=== PATIENT | male | born 1980 | race Caucasian/White ===

== ENCOUNTER 2019-06-26 15:20 | Emergency (ER) | payer OTHER ==
[~2019-06-26] VITALS: Ht 193 cm; Wt 97.0 kg
[2019-06-26] MEDS ORDERED: KETOROLAC 60 MG/2 ML VIAL IM ONE (16:00)
[2019-06-26] MEDS ORDERED: ORPHENADRINE 60 MG/2 ML (NORFLEX) AMP IM ONE (16:00)
[2019-06-26] MEDS ORDERED: CYCL10TA9 PO (16:04)
[2019-06-26] MEDS ORDERED: DICL50TA6 PO (16:04)
--- NOTE | 2019-06-26 16:04 | ED Back Pain ---
General Chief Complaint: Back Problems Stated Complaint: WC BACK PAIN Nursing Triage Note: PT WORKS AT [employer] AND WAS MOVING BUCKETS OF FRIES AND WATER WHILE SITTING DOWN AND NOW HIS LEFT SIDE LOWER BACK HURTS. Nursing Sepsis Screen: No Definite Risk Source of Information: Patient Exam Limitations: No Limitations History of Present Illness Date Seen by Provider: Jun 26, 2019 Time Seen by Provider: 16:00 Initial Comments Patient complains lower back pain radiating into buttocks for the past several hours. Onset was at work after he was moving 50 pound buckets. He denies fevers or incontinence. There is no direct trauma. It is worse with standing. He took Malaika without relief Allergies and Home Medications Allergies Coded Allergies: No Known Drug Allergies (Unverified , 06/26/19) Patient Home Medication List Home Medication List Reviewed: Yes Review of Systems Constitutional: no symptoms reported Respiratory: no symptoms reported Cardiovascular: no symptoms reported Genitourinary: no symptoms reported Musculoskeletal: back pain Past Cdabaom-Bvnizx-Uoeamx Hx Patient Social History Alcohol Use: Denies Use Recreational Drug Use: No 2nd Hand Smoke Exposure: No Recent Foreign Travel: No Contact w/Someone Who Travel: No Recent Infectious Disease Expo: No Recent Hopitalizations: No Physical Abuse: No Sexual Abuse: No Mistreated: No Fear: No Seasonal Allergies Seasonal Allergies: No Past Medical History Surgeries: No Respiratory: No Cardiac: No Neurological: No Genitourinary: No Gastrointestinal: No Musculoskeletal: No Endocrine: No HEENT: No Cancer: No Psychosocial: No Integumentary: No Blood Disorders: No Physical Exam Vital Signs Vital Signs - First Documented 06/26/19 15:40 Temp 37.0 Pulse 81 Resp 18 B/P (MAP) 111/80 (90) O2 Delivery Room Air Capillary Refill : Less Than 3 Seconds Height, Weight, BMI Height: '" Weight: lbs. oz. kg; 26.00 BMI Method: General Appearance: No Apparent Distress, WD/WN Neck: Supple Cardiovascular: Regular Rate, Rhythm Respiratory: Lungs Clear Gastrointestinal: Soft Back: Decreased Range of Motion, Muscle Spasm Extremity: Normal Inspection Neurologic/Psychiatric: Alert, No Motor/Sensory Deficits, Other (dorsiflexion 5 out of 5 bilaterally. Sensation grossly intact) Skin: Normal Color, Warm/Dry Progress/Results/Core Measures Results/Orders My Orders Orders - SAYDA BEYER MD Ketorolac Injection (Toradol Injection) (06/26/19 16:00) Orphenadrine Injection (Norflex Injectio (06/26/19 16:00) Vital Signs/I&O 06/26/19 15:40 Temp 37.0 Pulse 81 Resp 18 B/P (MAP) 111/80 (90) O2 Delivery Room Air Blood Pressure Mean: 90 POS Departure Impression Primary Impression: Back strain Additional Impression: Lumbar sprain Disposition: HOME, SELF-CARE Condition: Stable Departure-Patient Inst. Decision time for Depature: 16:02 Referrals: NO,LOCAL PHYSICIAN (PCP/Family) Primary Care Physician Patient Instructions: Lumbar Muscle Strain (DC) Add. Discharge Instructions: She decides to affected area. Take medications as prescribed. Return to work on Monday. All discharge instructions reviewed with patient and/or family. Voiced understanding. Scripts Cyclobenzaprine HCl (Cyclobenzaprine HCl) 10 Mg Tablet 10 MG PO TID PRN for SPASMS, #20 TAB Prov: SAYDA BEYER MD 06/26/19 Diclofenac Sodium (Diclofenac Sodium) 50 Mg Tablet. 50 MG PO BID, #10 TAB Prov: SAYDA BEYER MD 06/26/19 SAYDA BEYER MD Jun 26, 2019 16:04 POS
[2019-06-26 16:31] VITALS: BP 111/80
== END 2019-06-26 16:30 | disposition home or self-care (01) ==
LOC: ER FS 15:23
DX: S33.5XXA Sprain of ligaments of lumbar spine, initial encounter (principal); X50.0XXA Overexertion from strenuous movement or load, initial encounter; Y92.59 Other trade areas as the place of occurrence of the external cause
CPT/HCPCS: 99284